=== PATIENT | male | born 1975 | race Hispanic/Latino ===

== ENCOUNTER 2019-08-28 18:55 | Inpatient (IN) | payer OTHER ==
[2019-08-28] MEDS ORDERED: ASPIRIN 325 MG TAB PO ONE (19:32)
--- NOTE | 2019-08-28 19:34 | Event Note ---
ED Screening Note Date of service: 08/28/19 Time: 19:30 ED Screening Note: This is a 44 y.o. M. that presents to the ER with chest pain for 2 days. Patient states he just returned home this morning from [place]. PMH of CAD with stents and anxiety + LUE numbness Patient reports syncope prior to visiting [place] and 3 times there. This initial assessment/diagnostic orders/clinical plan/treatment(s) is/are subject to change based on patients health status, clinical progression and re- assessment by fellow clinical providers in the ED. Further treatment and workup at subsequent clinical providers discretion. Patient/guardian urged not to elope from the ED as their condition may be serious if not clinically assessed and managed. Initial orders include: EKG CXR Labs CT of head
--- NOTE | 2019-08-28 20:05 | XRay Report ---
CHEST 1 VIEW 08/28/2019 7:54 PM INDICATION / CLINICAL INFORMATION: MAIN: Chest Pain X 1 MONTH. COMPARISON: None available. FINDINGS: SUPPORT DEVICES: None. HEART / MEDIASTINUM: No significant abnormality. LUNGS / PLEURA: No significant pulmonary or pleural abnormality. No pneumothorax. ADDITIONAL FINDINGS: No significant additional findings. IMPRESSION: 1. No acute findings. Signer Name: Steve Clemente MD Signed: 08/28/2019 8:01 PM Workstation Name: [id number]
--- NOTE | 2019-08-28 20:22 | Cat Scan Report ---
CT HEAD WITHOUT CONTRAST INDICATION / CLINICAL INFORMATION: syncope. TECHNIQUE: All CT scans at this location are performed using CT dose reduction for ALARA by means of automated e xposure control. COMPARISON: None available. FINDINGS: HEMORRHAGE: None. EXTRA-AXIAL SPACES: Normal in size and morphology for the patient's age. VENTRICULAR SYSTEM: Normal in size and morphology for the patient's age. CEREBRAL PARENCHYMA: No significant abnormality. No acute territorial infarct. MIDLINE SHIFT OR HERNIATION: None. CEREBELLUM / BRAINSTEM: No significant abnormality. ORBITS: Normal as visualized. SOFT TISSUES of HEAD: No significant abnormality. CALVARIUM: No significant abnormality. PARANASAL SINUSES / MASTOID AIR CELLS: Normal as visualized. ADDITIONAL FINDINGS: None. IMPRESSION: 1. No acute intracranial abnormality. Signer Name: Steve Clemente MD Signed: 08/28/2019 8:17 PM Workstation Name: [id number]
[2019-08-28] MEDS ORDERED: SUCRALFATE 1 GM/10 ML ORAL LIQD PO ONE (21:50)
[2019-08-28] MEDS ORDERED: SODIUM CHLORIDE 0.9% 1000 ML 1,000 ML IV ONE (21:50)
[2019-08-28] MEDS ORDERED: FAMOTIDINE 20 MG/2 ML INJ IV ONE (21:50)
--- NOTE | 2019-08-28 21:56 | Emergency Department Report ---
ED General Adult HPI - General Chief complaint: Chest Pain Stated complaint: CHEST PAIN/WEAKNESS Time Seen by Provider: 08/28/19 19:30 Source: patient, RN notes reviewed Mode of arrival: Ambulatory Limitations: No Limitations - History of Present Illness Initial comments: The patient is a 44-year-old gentleman who is not known to this provider previously. He indicates he does not have a local primary care doctor, or local rn homecare. He reports that between 3 and 4-1/2 years ago he was admitted to [facility] in [facility], and had a single cardiac stent placed. He does not know if the stent is a drug-eluting stent or bare metal stent. He does not know his ejection fraction, and he apparently does not take aspirin or Plavix. He presents to the ER with multiple complaints. He states he's had multiple episodes of loss of consciousness this week, which do not have any preceding factors. He also reports that since yesterday, he's had left-sided tightness chest pressure and discomfort, that moves to the left arm, neck. He also reports that the pain is crushing in nature. He reports that he went to [place] yesterday, and he was skiing. He denies exertional shortness of breath. He makes no complaint of vomiting, diaphoresis. To me, he makes no complaint of unintentional 40 pound weight loss. He denies hematemesis and bright red blood per rectum. There is no complaint of homicidality or suicidality. He reports that his last episode of loss of consciousness was today. It was not preceded by headache, or neck pain. He's been having intermittent chest pain over the past day and a half. This is the first time he has sought medical attention. -: Gradual, Sudden Location: head, chest Quality: other Consistency: other Improves with: other Worsens with: other Associated Symptoms: other - Related Data Home Medications Medication Instructions Recorded Confirmed Last Taken ALPRAZolam [Xanax TAB] 0.5 mg PO BID PRN 08/29/19 08/29/19 Unknown Allergies Allergy/AdvReac Type Severity Reaction Status Date / Time ciprofloxacin [From Cipro] Allergy Hives Verified 08/28/19 19:36 codeine Allergy Hives Verified 08/28/19 19:36 hydrocodone Allergy Rash Verified 08/28/19 19:37 ketorolac [From Toradol] Allergy Hives Verified 08/28/19 19:34 paroxetine [From Paxil] Allergy Hives Verified 08/28/19 19:35 Penicillins Allergy Rash Verified 08/28/19 19:35 sulfamethoxazole Allergy Itching Verified 08/28/19 19:36 [From Bactrim] tramadol Allergy Hives Verified 08/28/19 19:35 trimethoprim [From Bactrim] Allergy Itching Verified 08/28/19 19:36 ED Review of Systems ROS: Stated complaint: CHEST PAIN/WEAKNESS Other details as noted in HPI Constitutional: denies: fever Eyes: denies: eye discharge ENT: denies: congestion Respiratory: shortness of breath. denies: wheezing Cardiovascular: chest pain, syncope Gastrointestinal: denies: vomiting Genitourinary: denies: dysuria Musculoskeletal: denies: back pain Skin: denies: lesions Neurological: denies: weakness Psychiatric: denies: homicidal thoughts, suicidal thoughts Hematological/Lymphatic: denies: easy bleeding ED Past Medical Hx - Past Medical History Previous Medical History?: Yes - Surgical History Past Surgical History?: Yes Additional Surgical History: Cardiac stents - Social History Smoking Status: Never Smoker Substance Use Type: None - Medications Home Medications: Home Medications Medication Instructions Recorded Confirmed Last Taken Type ALPRAZolam [Xanax TAB] 0.5 mg PO BID PRN 08/29/19 08/29/19 Unknown History ED Physical Exam - General Limitations: No Limitations General appearance: alert, in no apparent distress - Head Head exam: Present: atraumatic, normocephalic - Eye Eye exam: Present: normal appearance, PERRL, EOMI, other (visual acuity intact to finger counting in color perception at a close distance.). Absent: nystagmus - ENT ENT exam: Present: normal exam, normal orophraynx, mucous membranes moist, normal external ear exam - Neck Neck exam: Present: normal inspection, full ROM. Absent: tenderness, meningismu s - Respiratory Respiratory exam: Present: normal lung sounds bilaterally. Absent: respiratory distress - Cardiovascular Cardiovascular Exam: Present: regular rate, normal rhythm, normal heart sounds. Absent: bradycardia, tachycardia, irregular rhythm, systolic murmur, diastolic murmur, rubs, gallop - GI/Abdominal GI/Abdominal exam: Present: soft. Absent: distended, tenderness, guarding, rebound, rigid, pulsatile mass - Rectal Rectal exam: Present: deferred - Extremities Exam Extremities exam: Present: normal inspection, full ROM, other (2+ pulses noted in the bilateral upper and lower extremities. There is no long bony tenderness. The pelvis is stable, the muscular compartments are soft. There is no redness, pus or streaking.). Absent: pedal edema, calf tenderness - Back Exam Back exam: Present: normal inspection, full ROM. Absent: tenderness, CVA tenderness (R), CVA tenderness (L), paraspinal tenderness, vertebral tenderness - Neurological Exam Neurological exam: Present: alert, oriented X3, normal gait, other (2+ pulses noted in the bilateral upper and lower extremities. There is no long bony tende rness. The pelvis is stable, the muscular compartments are soft. There is no redness, pus or streaking.). Absent: motor sensory deficit - Psychiatric Psychiatric exam: Present: flat affect - Skin Skin exam: Present: warm, dry, intact, normal color. Absent: rash ED Course Vital Signs 08/28/19 08/28/19 08/28/19 19:07 22:02 22:15 Temperature 98.5 F Pulse Rate 85 73 70 Respiratory 18 9 L 24 Rate Blood Pressure 119/82 136/83 139/91 O2 Sat by Pulse 100 Oximetry 08/28/19 08/28/19 08/28/19 22:30 22:45 22:46 Temperature Pulse Rate 69 73 70 Respiratory 18 21 17 Rate Blood Pressure 130/83 144/89 144/89 O2 Sat by Pulse Oximetry 08/28/19 08/28/19 08/28/19 23:00 23:15 23:30 Temperature Pulse Rate 79 69 Respiratory 20 16 24 Rate Blood Pressure 127/74 136/82 142/90 O2 Sat by Pulse Oximetry 08/28/19 08/29/19 08/29/19 23:45 00:04 00:15 Temperature Pulse Rate 86 68 Respiratory 32 H 13 Rate Blood Pressure 133/81 133/81 140/86 O2 Sat by Pulse Oximetry 08/29/19 08/29/19 08/29/19 00:30 00:46 00:51 Temperature Pulse Rate 66 98 H Respiratory 22 28 H 20 Rate Blood Pressure 129/75 133/81 O2 Sat by Pulse 98 Oximetry - Reevaluation(s) Reevaluation #1: 08/28/19 23:12 Differential diagnosis, including but not limited to: Acute coronary syndrome, aortic dissection, pulmonary embolism, arrhythmia, structural cardiac disease, thyroid derangement, malingering Assessment and plan: 44-year-old gentleman who states he has a history of cardiac stent, but does not have a local primary care doctor or rn homecare. He is also not taking aspirin or Plavix. He also reports that he's had multiple episodes of loss of consciousness this week, but today has been the first episode that he has sought medical evaluation. Furthermore, he states he was another state recently this week, sooner recreational skiing In addition, the patient appears to be quite comfortable, has a computer laptop with him, and his physical exam is benign and unremarkable. His EKG is benign and unremarkable. His screening laboratory studies are benign and unremarkable. The patient stated that he was admitted to [facility] in [facility], however we called them up, and requested his medical records, and they stated they had no record of the patient being there. The patient is adamant that he was admitted there, and indicates that he did not change his name or date of . Given that the patient reports a strong family history of heart disease, and both his mother and father, and siblings, reports that he has a history of cardiac stent,, given his very strong clinical history, patient is moderate risk for major adverse cardiac event as per the heart score. CT scan of the brain is negative. Given complaint of chest pain, loss of consciousness, and recent travel, a d-dimer sent, elevated, and a CT scan of the chest will be obtained. I do not think that the patient has an aortic dissection, as symptoms have been present for 1 week, he is not especially hypertensive, the x-ray the chest is unremarkable, and he has equal pulses in upper and lower extremities. He appears quite comfortable and relaxed given his articulated complaints. Nevertheless, he will require admission for cardiac risk stratification, and evaluation of syncope. Reevaluation #2: 08/29/19 01:35 CT scan chest negative for acute disease. Patient resting comfortably and in no acute distress. He will be admitted to the medical service for recurrent syn cope, accelerated cardiac risk stratification. Hospital physician, Dr. Pantoja to admit ED Medical Decision Making - Lab Data Result diagrams: 08/28/19 22:35 08/28/19 22:35 Vital Signs 08/28/19 08/28/19 08/28/19 19:07 22:02 22:15 Temperature 98.5 F Pulse Rate 85 73 70 Respiratory 18 9 L 24 Rate Blood Pressure 119/82 136/83 139/91 O2 Sat by Pulse 100 Oximetry 08/28/19 08/28/19 22:30 22:45 Temperature Pulse Rate 69 73 Respiratory 18 21 Rate Blood Pressure 130/83 144/89 O2 Sat by Pulse Oximetry Lab Results 08/28/19 08/28/19 08/28/19 Range/Units 22:35 22:35 22:35 WBC 9.4 (4.5-11.0) K/mm3 RBC 4.43 (3.65-5.03) M/mm3 Hgb 14.3 (11.8-15.2) gm/dl Hct 42.3 (35.5-45.6) % MCV 96 H (84-94) fl MCH 32 (28-32) pg MCHC 34 (32-34) % RDW 13.7 (13.2-15.2) % Plt Count 308 (140-440) K/mm3 Lymph % (Auto) 37.8 H (13.4-35.0) % [place] % (Auto) 5.0 (0.0-7.3) % Eos % (Auto) 0.7 (0.0-4.3) % Baso % (Auto) 1.7 (0.0-1.8) % Lymph # 3.5 (1.2-5.4) K/mm3 [place] # 0.5 (0.0-0.8) K/mm3 Eos # 0.1 (0.0-0.4) K/mm3 Baso # 0.2 H (0.0-0.1) K/mm3 Seg Neutrophils % 54.8 (40.0-70.0) % Seg Neutrophils # 5.1 (1.8-7.7) K/mm3 PT 12.6 (12.2-14.9) Sec. INR 0.93 (0.87-1.13) D-Dimer 404.75 H (0-234) ng/mlDDU Sodium 139 (137-145) mmol/L Potassium 4.2 (3.6-5.0) mmol/L Chloride 100.0 (98-107) mmol/L Carbon Dioxide 22 (22-30) mmol/L Anion Gap 21 mmol/L BUN 9 (9-20) mg/dL Creatinine 0.7 L (0.8-1.5) mg/dL Estimated GFR > 60 ml/min BUN/Creatinine Ratio 13 % Glucose 100 (75-100) mg/dL Calcium 9.7 (8.4-10.2) mg/dL Magnesium (1.7-2.3) mg/dL Troponin T < 0.010 (0.00-0.029) ng/mL Lipase (13-60) units/L Free T4 (0.76-1.46) ng/dL Acetaminophen (10.0-30.0) ug/mL Plasma/Serum Alcohol (0-0.07) % 08/28/19 08/28/19 08/28/19 Range/Units 22:35 22:35 22:35 WBC (4.5-11.0) K/mm3 RBC (3.65-5.03) M/mm3 Hgb (11.8-15.2) gm/dl Hct (35.5-45.6) % MCV (84-94) fl MCH (28-32) pg MCHC (32-34) % RDW (13.2-15.2) % Plt Count (140-440) K/mm3 Lymph % (Auto) (13.4-35.0) % [place] % (Auto) (0.0-7.3) % Eos % (Auto) (0.0-4.3) % Baso % (Auto) (0.0-1.8) % Lymph # (1.2-5.4) K/mm3 [place] # (0.0-0.8) K/mm3 Eos # (0.0-0.4) K/mm3 Baso # (0.0-0.1) K/mm3 Seg Neutrophils % (40.0-70.0) % Seg Neutrophils # (1.8-7.7) K/mm3 PT (12.2-14.9) Sec. INR (0.87-1.13) D-Dimer (0-234) ng/mlDDU Sodium (137-145) mmol/L Potassium (3.6-5.0) mmol/L Chloride (98-107) mmol/L Carbon Dioxide (22-30) mmol/L Anion Gap mmol/L BUN (9-20) mg/dL Creatinine (0.8-1.5) mg/dL Estimated GFR ml/min BUN/Creatinine Ratio % Glucose (75-100) mg/dL Calcium (8.4-10.2) mg/dL Magnesium 2.00 (1.7-2.3) mg/dL Troponin T (0.00-0.029) ng/mL Lipase 18 (13-60) units/L Free T4 1.55 H (0.76-1.46) ng/dL Acetaminophen < 5.0 L (10.0-30.0) ug/mL Plasma/Serum Alcohol (0-0.07) % 08/28/19 Range/Units 22:35 WBC (4.5-11.0) K/mm3 RBC (3.65-5.03) M/mm3 Hgb (11.8-15.2) gm/dl Hct (35.5-45.6) % MCV (84-94) fl MCH (28-32) pg MCHC (32-34) % RDW (13.2-15.2) % Plt Count (140-440) K/mm3 Lymph % (Auto) (13.4-35.0) % [place] % (Auto) (0.0-7.3) % Eos % (Auto) (0.0-4.3) % Baso % (Auto) (0.0-1.8) % Lymph # (1.2-5.4) K/mm3 [place] # (0.0-0.8) K/mm3 Eos # (0.0-0.4) K/mm3 Baso # (0.0-0.1) K/mm3 Seg Neutrophils % (40.0-70.0) % Seg Neutrophils # (1.8-7.7) K/mm3 PT (12.2-14.9) Sec. INR (0.87-1.13) D-Dimer (0-234) ng/mlDDU Sodium (137-145) mmol/L Potassium (3.6-5.0) mmol/L Chloride (98-107) mmol/L Carbon Dioxide (22-30) mmol/L Anion Gap mmol/L BUN (9-20) mg/dL Creatinine (0.8-1.5) mg/dL Estimated GFR ml/min BUN/Creatinine Ratio % Glucose (75-100) mg/dL Calcium (8.4-10.2) mg/dL Magnesium (1.7-2.3) mg/dL Troponin T (0.00-0.029) ng/mL Lipase (13-60) units/L Free T4 (0.76-1.46) ng/dL Acetaminophen (10.0-30.0) ug/mL Plasma/Serum Alcohol < 0.01 (0-0.07) % - EKG Data -: EKG Interpreted by Me EKG shows normal: sinus rhythm Rate: normal - EKG Data When compared to previous EKG there are: previous EKG unavailable 08/28/19 23:16 There is no prior EKG available for comparison. The EKG shows a sinus rhythm, 76 bpm, normal axis, QTC is 425 ms, nonspecific findings in V3, question lead malposition, this EKG is not consistent with STEMI. - Radiology Data Radiology results: pending, report reviewed, image reviewed X-ray the chest is negative. Noncontrast CT scan of the brain is negative. Critical care attestation.: If time is entered above; I have spent that time in minutes in the direct care of this critically ill patient, excluding procedure time. ED Disposition Clinical Impression: Acute chest pain, History of syncope, History of coronary artery disease Disposition: OP ADMIT IP TO THIS HOSP Is pt being admited?: Yes Does the pt Need Aspirin: Yes Condition: Stable Instructions: Chest Pain (ED)
[2019-08-28 22:51] LABS: Basophils # (Auto) 0.2 K/mm3 (0.0-0.1); Basophils % (Auto) 1.7 % (0.0-1.8); Eosinophils # (Auto) 0.1 K/mm3 (0.0-0.4); Eosinophils % (Auto) 0.7 % (0.0-4.3); Hematocrit 42.3 % (35.5-45.6); Hemoglobin 14.3 gm/dl (11.8-15.2); Lymphocytes # (Auto) 3.5 K/mm3 (1.2-5.4); Lymphocytes % (Auto) 37.8 % (13.4-35.0); Mean Corpuscular HGB Conc 34 % (32-34); Mean Corpuscular Volume 96 fl (84-94); Monocytes # (Auto) 0.5 K/mm3 (0.0-0.8); Platelet Count 308 K/mm3 (140-440); Red Blood Count 4.43 M/mm3 (3.65-5.03); Red Cell Distribution Width 13.7 % (13.2-15.2)
[2019-08-28 23:00] LABS: INR 0.93 (0.87-1.13)
[2019-08-28 23:04] LABS: BUN/Creatinine Ratio 13; Blood Urea Nitrogen 9 mg/dL (9-20); Calcium 9.7 mg/dL (8.4-10.2); Hemolysis Index 55
[2019-08-28] MEDS ORDERED: NITROGLYCERIN 0.4 MG TAB SUBL SL PRN (23:05)
[2019-08-29] MEDS ORDERED: ASPIRIN 325 MG TAB ONE (00:35)
[2019-08-29] MEDS ORDERED: SUCRALFATE 1 GM/10 ML ORAL LIQD ONE (00:35)
[2019-08-29] MEDS ORDERED: FAMOTIDINE 20 MG/2 ML INJ IV ONE (00:35)
--- NOTE | 2019-08-29 01:12 | Cat Scan Report ---
CTA of the chest with 3D Reconstruction Indication: ,Chest pain, shortness of breath and syncope, elevated d-dimer Technique: TECHNIQUE: Axial CT images were obtained through the chest after injection of 100 cc of Omnipaque 350 IV contrast. 3 plane MIP reconstructions were produced. All CT scans at this location are performed using CT dose reduction for ALARA by means of automated exposure control. COMPARISON: None Automatic exposure control was utilized in an attempt to reduce radiation dose. Findings: Pulmonary arteries: The main pulmonary artery and right and left pulmonary artery branches fill satis factorily with contrast. No pulmonary embolus is seen. Lungs: The lungs are clear. Mediastinum: Heart size is normal. No adenopathy is seen. Aorta: Normal in diameter. No dissection seen within limits of this exam. Impression: No pulmonary embolus is seen Signer Name: Arnaldo Huston MD Signed: 08/29/2019 1:07 AM Workstation Name: [id number]
[2019-08-29] MEDS ORDERED: CLOPIDOGREL 75 MG TAB PO ONE (01:37)
[2019-08-29] MEDS ORDERED: ACETAMINOPHEN 325 MG TAB PO PRN (02:18)
[2019-08-29] MEDS ORDERED: ONDANSETRON 4 MG/2 ML INJ IV PRN (02:18)
[2019-08-29] MEDS ORDERED: SODIUM CHLORIDE 0.9% 1000 ML 1,000 ML IV SCH (02:30)
--- NOTE | 2019-08-29 02:32 | History and Physical Report ---
History of Present Illness Date of examination: 08/29/19 Date of admission: 08/29/19 Chief complaint: " [place] out at the airport" History of present illness: Patient is a 44-year-old male who reports no significant past medical history but can recall having a stent placed in 2014. He presents to ER by private vehicle with complaints of "episodes of passing out" with one episode in the ER bathroom around 2200 and chest pains intermittently x1 week. He states he sought care at an urgent care 2 days ago for similar complaints and was recommended to go to the ER, but because he was in [place] he decided to wait until his return home. After deplaning this evening at [place], he reports another syncopal episode precipitated by shortness of breath, neck irritation and dizziness. Upon examination patient is resting comfortably in bed and denies any current chest pain, dizziness, chills, sweats, or nausea vomiting. Past History Past Medical History: No medical history Past Surgical History: Other (Stent 2014, back surgery 2008) Social history: no significant social history Family history: CAD, hypertension Medications and Allergies Allergies Allergy/AdvReac Type Severity Reaction Status Date / Time ciprofloxacin [From Cipro] Allergy Hives Verified 08/28/19 19:36 codeine Allergy Hives Verified 08/28/19 19:36 hydrocodone Allergy Rash Verified 08/28/19 19:37 ketorolac [From Toradol] Allergy Hives Verified 08/28/19 19:34 paroxetine [From Paxil] Allergy Hives Verified 08/28/19 19:35 Penicillins Allergy Rash Verified 08/28/19 19:35 sulfamethoxazole Allergy Itching Verified 08/28/19 19:36 [From Bactrim] tramadol Allergy Hives Verified 08/28/19 19:35 trimethoprim [From Bactrim] Allergy Itching Verified 08/28/19 19:36 Home Medications Medication Instructions Recorded Confirmed Last Taken Type ALPRAZolam [Xanax TAB] 0.5 mg PO BID PRN 08/29/19 08/29/19 Unknown History Active Meds: Active Medications Acetaminophen (Tylenol) 650 mg PO Q4H PRN PRN Reason: Pain MILD(1-3)/Fever >100.5/BUCK Aspirin (Ecotrin) 325 mg PO QDAY [place] Atorvastatin Calcium (Lipitor) 40 mg PO QHS [place] Famotidine (Pepcid) 10 mg IV BID [place] Sodium Chloride (Nacl 0.9% 1000 Ml) 1,000 mls @ 100 mls/hr IV DIRECT [place] Metoprolol Tartrate (Metoprolol) 12.5 mg PO BID [place] Nitroglycerin (Nitrostat) 0.4 mg SL .Q5MIN PRN PRN Reason: Chest Pain Ondansetron HCl (Zofran) 4 mg IV Q8H PRN PRN Reason: Nausea And Vomiting Sodium Chloride (Sodium Chloride Flush Syringe 10 Ml) 10 ml IV BID [place] Sodium Chloride (Sodium Chloride Flush Syringe 10 Ml) 10 ml IV PRN PRN PRN Reason: LINE FLUSH Review of Systems All systems: negative Cardiovascular: chest pain, lightheadedness Neurological: syncope Exam - Physical Exam Narrative exam: - Physical Exam Narrative exam: General appearance: Present: No distress noted - EENT Eyes: Present: PERRL ENT: hearing intact, clear oral mucosa - Neck Neck: Present: supple, normal ROM - Respiratory Respiratory effort: normal Respiratory: bilateral: Clear to auscultation - Cardiovascular Heart rate: 84 Heart Sounds: Present: S1 & S2. Absent: rub, click - Extremities Extremities: pulses symmetrical, No edema Peripheral Pulses: within normal limits - Abdominal General gastrointestinal: Present: , non-distended, normal bowel sounds genitourinary: Present: normal - Integumentary Integumentary: Present: clear, warm, dry - Musculoskeletal Musculoskeletal: gait normal, strength equal bilaterally - Psychiatric Psychiatric: appropriate mood/affect, intact judgment & insight - Neurologic Neurologic: CNII-XII intact, moves all extremities - Constitutional Vitals: Temp Pulse Resp BP Pulse Ox 98.5 F 98 H 20 133/81 98 08/28/19 19:07 08/29/19 00:46 08/29/19 00:51 08/29/19 00:46 08/29/19 00:51 Results - Labs CBC & Chem 7: 08/28/19 22:35 08/28/19 22:35 Labs: Laboratory Last Values WBC 9.4 K/mm3 (4.5-11.0) 08/28/19 22:35 RBC 4.43 M/mm3 (3.65-5.03) 08/28/19 22:35 Hgb 14.3 gm/dl (11.8-15.2) 08/28/19 22:35 Hct 42.3 % (35.5-45.6) 08/28/19: MCV 96 fl (84-94) H 08/28/19: MCH 32 pg (28-32) 08/28/19: MCHC 34 % (32-34) 08/28/19: RDW 13.7 % (13.2-15.2) 08/28/19: Plt Count 308 K/mm3 (140-440) 08/28/19: Lymph % (Auto) 37.8 % (13.4-35.0) H 08/28/19: [place] % (Auto) 5.0 % (0.0-7.3) 08/28/19: Eos % (Auto) 0.7 % (0.0-4.3) 08/28/19: Baso % (Auto) 1.7 % (0.0-1.8) 08/28/19: Lymph # 3.5 K/mm3 (1.2-5.4) 08/28/19: [place] # 0.5 K/mm3 (0.0-0.8) 08/28/19: Eos # 0.1 K/mm3 (0.0-0.4) 08/28/19: Baso # 0.2 K/mm3 (0.0-0.1) H 08/28/19: Seg Neutrophils % 54.8 % (40.0-70.0) 08/28/19: Seg Neutrophils # 5.1 K/mm3 (1.8-7.7) 08/28/19: PT 12.6 Sec. (12.2-14.9) 08/28/19: INR 0.93 (0.87-1.13) 08/28/19: D-Dimer 404.75 ng/mlDDU (0-234) H 08/28/19 22:35 Sodium 139 mmol/L (137-145) 08/28/19: Potassium 4.2 mmol/L (3.6-5.0) 08/28/19: Chloride 100.0 mmol/L (98-107) 08/28/19 22:35 Carbon Dioxide 22 mmol/L (22-30) 08/28/19 22:35 Anion Gap 21 mmol/L 08/28/19 22:35 BUN 9 mg/dL (9-20) 08/28/19 22:35 Creatinine 0.7 mg/dL (0.8-1.5) L 08/28/19 22:35 Estimated GFR > 60 ml/min 08/28/19 22:35 BUN/Creatinine Ratio 13 % 08/28/19 22:35 Glucose 100 mg/dL (75-100) 08/28/19 22:35 Calcium 9.7 mg/dL (8.4-10.2) 08/28/19: Magnesium 2.00 mg/dL (1.7-2.3) 08/28/19 22:35 Total Creatine Kinase 120 units/L (55-170) 08/28/19 22:35 Troponin T < 0.010 ng/mL (0.00-0.029) 08/29/19 01: Lipase 18 units/L (13-60) 08/28/19 22:35 TSH 0.515 mlU/mL (0.270-4.200) 08/28/19: Free T4 1.55 ng/dL (0.76-1.46) H 08/28/19:35 Salicylates < 0.3 mg/dL (2.8-20.0) L 08/28/19:35 Acetaminophen < 5.0 ug/mL (10.0-30.0) L 08/28/19: Plasma/Serum Alcohol < 0.01 % (0-0.07) 08/28/19 22:35 - Imaging and Cardiology EKG: report reviewed ( sinus rhythm) Chest x-ray: report reviewed (IMPRESSION: 1. No acute findings. ) CT Scan - head: report reviewed (IMPRESSION: 1. No acute intracranial abnormality. ) Imaging and Cardiology: CTA of the chest Indication: ,Chest pain, shortness of breath and syncope, elevated d-dimer Findings: Pulmonary arteries: The main pulmonary artery and right and left pulmonary artery branches fill satisfactorily with contrast. No pulmonary embolus is seen. Lungs: The lungs are clear. Mediastinum: Heart size is normal. No adenopathy is seen. Aorta: Normal in diameter. No dissection seen within limits of this exam. 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
[2019-08-29] MEDS: MORPHINE 2 MG/1 ML INJ IV PRN ×4 (04:38→22:04)
[2019-08-29] MEDS: FAMOTIDINE 20 MG/2 ML INJ IV SCH ×3 (09:35→22:10)
[2019-08-29] MEDS: METOPROLOL TARTRATE 25 MG TAB PO SCH ×3 (09:35→22:12)
[2019-08-29] MEDS: ASPIRIN EC 325 MG TAB PO SCH ×2 (09:36→09:40)
--- NOTE | 2019-08-29 11:25 | Vascular Lab Report ---
"DUPLEX DOPPLER ULTRASOUND CAROTID, BILATERAL INDICATION: acs. FINDINGS: RIGHT CAROTID: No significant atherosclerotic plaque. Right ICA peak systolic velocity: 110 cm/sec. Right Vertebral Artery: Antegrade flow. LEFT CAROTID: No significant atherosclerotic plaque. Left ICA peak systolic velocity: 78 cm/sec. Left Vertebral Artery: Antegrade flow. IMPRESSION: 1. Right Internal Carotid Artery: Less than 50% diameter stenosis. 2. Left Internal Carotid Artery: Less than 50% diameter stenosis. Velocity criteria are extrapolated from diameter data as defined by the Society of Radiologists in [place] Consensus Conference, Radiology 2003; 229;340-346. Degree of Stenosis (%) || ICA PSV (cm/sec) || Plaque estimate (%) || ICA/CCA PSV Ratio Normal <125 None <2.0 <50 <125 <50 <2.0 50-69 125-230 50 2.0-4.0 70 but less than 100 >230 50 >4.0 Near occlusion High, low, or none visible variable Total occlusion None visible; no lumen N/A Signer Name: Steve Clemente MD Signed: 08/29/2019 11:20 AM Workstation Name: [id number]"
--- NOTE | 2019-08-29 11:41 | Consultation ---
HISTORY OF PRESENT ILLNESS: He is a pleasant 44-year-old gentleman who has a history of coronary artery disease. He states he had a stent placed in 2015, back surgery. He is a , has PTSD, has a psychiatrist, does not have a primary care physician. He states he has been having lightheadedness and syncope over the past 2 weeks, mostly with prodrome; most recently, yesterday. He was in [place] visiting his son, did not feel well with lightheadedness and chest pain, went to urgent care, and was told to go to emergency room. Instead, he flew back home and after a deplaning at [facility], he came to [facility]. He is currently chest pain free. No lightheadedness, dizziness, feels fine. Describes not feeling well and out ALLERGIES: He HAS MULTIPLE ALLERGIES INCLUDING CIPRO, CODEINE, HYDROCODONE, KETOROLAC, PAXIL, PENICILLIN, BACTRIM, TRAMADOL AND TRIMETHOPRIM. HOME MEDICATIONS: Xanax. PAST MEDICAL HISTORY: As aforementioned. REVIEW OF SYSTEMS: As aforementioned. SOCIAL HISTORY: Nonsmoker, drinks occasionally. No illicit drug use. PHYSICAL EXAMINATION: VITAL SIGNS: Blood pressure is 110/70. He is afebrile. Tele reveals sinus rhythm in the 70s and 80s. O2 sats 97% on room air. GENERAL: This is a young male, in no apparent distress, alert and oriented x 3. HEENT: Sclerae are anicteric. PERRLA. NECK: Supple. No mass or JVD. CHEST: Clear to auscultation bilaterally. Good air movement. CARDIOVASCULAR: Regular S1, S2. ABDOMEN: Soft, nontender, nondistended. Normoactive bowel sounds in 4 quadrants. No mass or bruits. EXTREMITIES: No cyanosis, clubbing or edema. Good peripheral pulses. SKIN: Intact. No rashes. LABORATORY DATA: ECG reveals normal sinus rhythm without acute ST segment shift. A CT chest shows no pulmonary embolus. CBC, BMP are unremarkable. TSH is borderline high. Alcohol level is negative. His troponins are negative x 3. ASSESSMENT: In summary, the patient is a pleasant 44-year-old gentleman: 1. Atypical chest pain. 2. Questionable recurrent syncopal events. 3. Questionable history of coronary artery disease/percutaneous coronary intervention. PLAN: At this point, continue current medications including aspirin, statin, and low-dose beta nette. We will check echocardiogram and nuclear stress test. Carotid Dopplers are also pending. Thank you for this consultation. I would be happy to follow along with you. JOB# [id number] SBMat/NTS
[2019-08-29] MEDS ORDERED: oxyCODONE /ACETAMINOPHEN 5-325MG TAB PO PRN (11:56)
[2019-08-29] MEDS ORDERED: IBUPROFEN 600 MG TAB PO PRN (21:33)
--- NOTE | 2019-08-30 01:20 | Event Note ---
Date: 08/30/19 IV morphine discontinued, agreed with ER doc assessment of patient malingering. Pt has refused all other ordered pain medications.
[2019-08-30] MEDS ORDERED: REGADENOSON 0.4 MG/5 ML INJ IV ONE ×3 (07:13→09:45)
[2019-08-30 08:15] LABS: Basophils # (Auto) 0.1 K/mm3 (0.0-0.1); Basophils % (Auto) 1.2 % (0.0-1.8); Eosinophils # (Auto) 0.2 K/mm3 (0.0-0.4); Hematocrit 39.3 % (35.5-45.6); Hemoglobin 13.4 gm/dl (11.8-15.2); Lymphocytes # (Auto) 3.5 K/mm3 (1.2-5.4); Mean Corpuscular HGB Conc 34 % (32-34); Mean Corpuscular Volume 95 fl (84-94); Monocytes # (Auto) 0.6 K/mm3 (0.0-0.8); Platelet Count 264 K/mm3 (140-440); Red Blood Count 4.12 M/mm3 (3.65-5.03); Red Cell Distribution Width 13.6 % (13.2-15.2)
[2019-08-30 08:32] LABS: BUN/Creatinine Ratio 17; Blood Urea Nitrogen 12 mg/dL (9-20); Calcium 8.9 mg/dL (8.4-10.2); Chol/HDL Ratio 2.55 %; HDL Cholesterol 49 mg/dL (40-59); Hemolysis Index 14; LDL Cholesterol,Direct 77 mg/dL (50-130)
--- NOTE | 2019-08-30 11:03 | Progress Note ---
Assessment and Plan Atypical chest pain Currently resolved. AMI r/o. S/p lexiscan MPI stress test this AM which was negative for ischemia, EF 55%. TTE reviewed - EF 55-60%, mild LVH, LA mildly dilated. CAD s/p PCI in 2015 per pt report S/p lexiscan MPI stress test this AM which was negative for ischemia, EF 55%. TTE reviewed - EF 55-60%, mild LVH, LA mildly dilated. Cont ASA 81, statin, lopressor. Lightheadedness / ? recurrent syncopal episodes Pt reports recurrent syncope for the past 1 week which occurs when he is ambulating. Pt reports he has experienced several episodes here which were witnessed by nursing staff. However, nursing staff denies witnessing any syncopal episodes. S/p lexiscan MPI stress test this AM which was negative for ischemia, EF 55%. TTE reviewed - EF 55-60%, mild LVH, LA mildly dilated. Carotid studies with no significant stenosis. Head CT with NAF. Telemetry reviewed - in SR with SB overnight while asleep, HR low 48bpm. No arrhythmias noted since admission. Obtain orthostatics. Elevated DDimer Chest CTA negative for PE, NAF. H/o PTSD Currently stable cardiac status. Obtain orthostatics, pending orthostatics are unremarkable, nothing further to add at this time from cardiac perspective. Consider further eval/management of questionable syncopal episodes per primary team. Per nursing staff, it is unclear whether or not these syncopal episodes are actually occurring. Recommend pt follow up in our office with Dr. Jesus Manuel Wright within 1-2 weeks of discharge ([phone]). The patient has been seen in conjunction with Dr. Bustos who agrees with the assessment and plan of care. Subjective Date of service: 08/30/19 Principal diagnosis: cp; ? recurrent syncope Interval history: pt resting in bed, no current complaints. s/p stress test this AM. pt reports that prior to being brought down for stress test, he experienced a syncopal episode in the bathroom and fell to the floor and pulled the shower curtain down. He states that his nurse found him on the floor and helped him up. However, his nurse denies that this event took place. She has not witnessed any syncopal episode. Telemetry reviewed - in SR with SB overnight while asleep, HR low 48bpm. No arrhythmias noted since admission. Objective Last Vital Signs Temp 68.3 F L 08/29/19 23:28 Pulse 86 08/29/19 23:28 Resp 20 08/29/19 23:28 BP 117/71 08/30/19 09:59 Pulse Ox 96 08/29/19 23:28 - Physical Examination General: No Apparent Distress HEENT: Positive: PERRL, Normocephaly, Mucus Membranes Moist Neck: Positive: neck supple, trachea midline Cardiac: Positive: Reg Rate and Rhythm, S1/S2 Lungs: Positive: clear to auscultation Neuro: Positive: Grossly Intact Abdomen: Negative: Tender Musculoskeletal: No Pain Extremities: Absent: edema - Labs and Meds Lipids 08/30/19 Range/Units 07:11 Triglycerides 74 (2-149) mg/dL Cholesterol 125 (50-199) mg/dL HDL Cholesterol 49 (40-59) mg/dL Cholesterol/HDL Ratio 2.55 % CBC 08/30/19 Range/Units 07:11 WBC 6.8 (4.5-11.0) K/mm3 RBC 4.12 (3.65-5.03) M/mm3 Hgb 13.4 (11.8-15.2) gm/dl Hct 39.3 (35.5-45.6) % Plt Count 264 (140-440) K/mm3 Lymph # 3.5 (1.2-5.4) K/mm3 [place] # 0.6 (0.0-0.8) K/mm3 Eos # 0.2 (0.0-0.4) K/mm3 Baso # 0.1 (0.0-0.1) K/mm3 Comprehensive Metabolic Panel 08/30/19 Range/Units 07:11 Sodium 141 (137-145) mmol/L Potassium 4.4 (3.6-5.0) mmol/L Chloride 105.5 (98-107) mmol/L Carbon Dioxide 22 (22-30) mmol/L BUN 12 (9-20) mg/dL Creatinine 0.7 L (0.8-1.5) mg/dL Glucose 100 (75-100) mg/dL Calcium 8.9 (8.4-10.2) mg/dL - Imaging and Cardiology EKG: report reviewed ( sinus rhythm), image reviewed Echo: report reviewed - Telemetry EKG Rhythm: Sinus Rhythm
[2019-08-30 11:23] VITALS: BP 140/86
[2019-08-30] MEDS: METOPROLOL TARTRATE 25 MG TAB PO SCH (11:23)
[2019-08-30] MEDS: FAMOTIDINE 20 MG/2 ML INJ IV SCH (11:23)
[2019-08-30] MEDS: ASPIRIN EC 325 MG TAB PO SCH (12:08)
--- NOTE | 2019-08-30 13:40 | Discharge Summary ---
Providers - Providers Date of Admission: 08/29/19 02:39 Attending physician: SAM CALVILLO MD 08/29/19 06:29 Consult to Physician [CONS] Routine Comment: Consulting Provider: TAVON NGUYEN Physician Instructions: Reason For Exam: Syncope/CAD Primary care physician: [employer] Hospitalization Condition: Stable Hospital course: 44-year-old man who presents to the hospital complaining of syncope. He has had multiple episodes of syncope.He also had associated atypical chest pain, but stated that he might have hit his chest when he passed out. The patient also reports a history of CAD status post PCI in 2014 per his own report. The patient was observed on telemetry for 48 hours, he was observed to have bradycardia the leidy was 49 He went on to have an echo which was unremarkable, and a stress test which was unremarkable. He is orthostatic vital signs does show a drop from supine position to sitting position. But he corrected after the patient stood up. Syncope is most likely vasovagal in nature. Patient is advised to get up slowly and take his time, Avoid prolonged standing. And stay well-hydrated. He is advised to follow-up with [facility] as an outpatient. Preventative health counseling performed for 17 minutes Diagnosis Vasovagal syncope/transient autonomic imbalance Atypical chest pain, most likely due to costochondritis History of CAD per patient report, stress test negative Elevated d-dimer, went on to have a CT angiogram of his chest which was negative for PE. History of PTSD, recommend outpatient psychiatry follow-up Disposition: - TO HOME OR SELFCARE Time spent for discharge: 35 minutes Core Measure Documentation - Palliative Care Palliative Care/ Comfort Measures: Not Applicable - Core Measures Any of the following diagnoses?: none Exam - Constitutional Vitals: Temp Pulse Resp BP Pulse Ox 68.3 F L 67 21 140/86 100 08/29/19 23:28 08/30/19 11:23 08/30/19 10:00 08/30/19 11:23 08/30/19 11:22 General appearance: Present: no acute distress, well-nourished - EENT Eyes: Present: PERRL ENT: hearing intact, clear oral mucosa - Neck Neck: Present: supple, normal ROM - Respiratory Respiratory effort: normal Respiratory: bilateral: CTA - Cardiovascular Heart Sounds: Present: S1 & S2. Absent: rub, click - Extremities Extremities: pulses symmetrical, No edema Peripheral Pulses: within normal limits - Abdominal General gastrointestinal: Present: soft, non-tender, non-distended, normal bowel sounds Male genitourinary: Present: normal - Integumentary Integumentary: Present: clear, warm, dry - Musculoskeletal Musculoskeletal: gait normal, strength equal bilaterally - Psychiatric Psychiatric: appropriate mood/affect, intact judgment & insight - Neurologic Neurologic: CNII-XII intact, moves all extremities Plan Additional Instructions: Vasovagal syncope ([id number]) occurs when you faint because your body overreacts to certain triggers, such as the s ight of blood or extreme emotional distress. It may also be called neurocardiogenic syncope. The vasovagal syncope trigger causes your heart rate and blood pressure to drop suddenly. That leads to reduced blood flow to your brain, causing you to briefly lose consciousness. Vasovagal syncope is usually harmless and requires no treatment. But it's possible you may injure yourself during a vasovagal syncope episode. Prevention. You may not always be able to avoid a vasovagal syncope episode. If you feel like you might faint, lie down and lift your legs. This allows gravity to keep blood flowing to your brain. If you can't lie down, sit down and put your head between your knees until you feel better. Follow up with: PRIMARY CARE, [Primary Care Provider] - 3-5 Days MORGAN HERNANDEZ MD [Staff Physician] - 7 Days Forms: Work/School Release Form Prescriptions: Pravastatin Sodium [Pravastatin] 10 mg PO QHS #90 tablet Aspirin EC [Halfprin EC] 81 mg PO QDAY #90 tablet.
[2019-08-31] MEDS ORDERED: ASPIRIN 81 MG TAB CHEW PO SCH (10:00)
== END 2019-08-30 14:02 | disposition home or self-care (01) | DRG 74 ==
LOC: ED 18:55 → 4A 08-29 02:39
PROVIDERS: ADMIT Internal Medicine; ATTEND Internal Medicine
DX: G90.8 Other disorders of autonomic nervous system (principal); M94.0 Chondrocostal junction syndrome [Tietze]; Z79.01 Long term (current) use of anticoagulants; Z88.6 Allergy status to analgesic agent; Z88.1 Allergy status to other antibiotic agents; Z88.5 Allergy status to narcotic agent; Z88.0 Allergy status to penicillin; Z88.8 Allergy status to other drugs, medicaments and biological substances; Z95.5 Presence of coronary angioplasty implant and graft; Z82.49 Family history of ischemic heart disease and other diseases of the circulatory system
CPT/HCPCS: 36415; 70450; 71045; 71275; 78452; 80048; 80061; 80320; 82550; 83690; 83735; 84439; 84443; 84484; 85025; 85379; 85610; 93005; 93010; 93017; 93306; 93880; 96361; 96374; G0378; A9270-GY; A9502; G0480; J2270; J2785; J7030; Q9967